=== PATIENT | male | born 1930 | race Caucasian/White ===

== ENCOUNTER → 2017-02-06 | Outpatient (CLI) | payer MEDICARE, BC ==
[~2017-02-06] MED LIST: REGADENOSON 0.4 MG/5 ML DISP.SYRIN. IV ONE
--- NOTE | 2017-02-06 19:17 | PCVCIMAG ---
APPROVED REPORT Exam: Nuclear Stress Test Indication: CAD , Pre-Operative CV evaluation Patient Location: Out-Patient Stress Nurse: Fariha Ortiz RN, DANN Arias Tech:Jazzmine MurilloEMMIE hudson Ht: 6 ft 0 in Wt: 195 lbs BSA: 2.11 m2 HR: 59 bpm BP: 146/65 mmHg BMI: 26.4 Rhythm: Sinus Bradycardia Medical History Medical History: HTN, Hyperlipidemia, PAD, Smoking - Former Medications: Omeprazole, Simvastatin, ASA, Fish Oil, Lisinopril Allergies: No known drug allergies Cardiac Risk Factors: Age Previous Cardiac Procedures: PCI Pretest Chest Pain Characteristics: No chest pain Exercise History: Physically active Physical Disabilities: Knees NM EXAM: Myocardial Perfusion REST/STRESS Imaging Protocol: Rest Tc-99m/Stress Tc-99m 1 day Resting Data Rest SPECT myocardial perfusion imaging was performed in supine position 45 minutes following the intravenous injection of 10.3 mCi of Tc-99m Sestamibi. Time of rest injection: 0900 Date: 02/06/2017 Pharmacologic Stress Pharmacologic stress test was performed by injecting Regadenoson 0.4 mg IV push followed by the intravenous injection of 33.7 mCi of Tc-99m Sestamibi. Time of stress injection: 1005 Date: 02/06/2017 Administration Route: IV Administration Site: Right Hand Gated Stress SPECT was performed 45 minutes after stress injection. The images were gated to evaluate regional wall motion and calculate left ventricular ejection fraction. Study Quality Study: Good Study Data Post stress, the left ventricular ejection was 58%.. SSS: 3 SRS: 2 SDS: 1 TID = 0.95. Perfusion No evidence of stress induced ischemia. 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 Wall Motion There is a medium area of hypokinesis in the mid and apical segment of the inferior wall which is seen on the stress images as well as the resting images. Nuclear Conclusion No evidence of stress induced ischemia. 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 Post stress, the left ventricular ejection was 58%.. No change since prior study dated April 2015. Interpreted by: Joseph Lincoln MD Electronically Approved: 02/06/2017 12:26:07 Stress Test Details Stress Test: Pharmacologic stress was paired with low level exercise. Reason for pharmacologic stress test: physical limitation. HR Resting HR: 64 bpmMax Heart Rate (APMHR): 134 bpm Max HR Achieved: 100 bpmTarget HR (85% APMHR): 113 bpm % of APMHR: 74 Recovery HR: 63 bpm BP Resting BP: 146/65 mmHg Max BP: 156/69 mmHg Recovery BP: 143/64 mmHg ECG Resting ECG: Sinus Bradycardia Stress ECG: Sinus Tachycardia Recovery ECG: Sinus Rhythm Recovery ST Change: None Clinical Reason for Termination: Completed protocol Stress Symptoms: Dyspnea, Dizziness, resolved during recovery Exercise duration: 4 min 00 sec Exercise capacity: 1.6 METs No complications. Symptoms resolved during recovery. Stress ECG Conclusion ECG: Non-ischemic <Conclusion> ECG: Non-ischemic
== END | disposition home or self-care (01) ==
LOC: PCVCIMAG 08:24
PROVIDERS: ATTEND Internal Medicine Cardiovascular Disease
DX: Z01.810 Encounter for preprocedural cardiovascular examination (principal); I25.10 Atherosclerotic heart disease of native coronary artery without angina pectoris; I10 Essential (primary) hypertension; I73.9 Peripheral vascular disease, unspecified; E78.5 Hyperlipidemia, unspecified; R00.1 Bradycardia, unspecified; R00.0 Tachycardia, unspecified; Z87.891 Personal history of nicotine dependence
CPT/HCPCS: 78452; 93017; A9500; J2785